=== PATIENT | male | born 1950 | race Caucasian/White ===

== ENCOUNTER 2019-08-26 15:20 | Inpatient (IN) | payer MEDICARE ==
[~2019-08-26] VITALS: Ht 170.2 cm; Wt 55.0 kg
--- NOTE | 2019-08-26 16:35 | NUR ---
RECEIVED PT TO ROOM 2131 VIA STRETCHER, X2 ASSSIST TO TRANSFER PT. PT A/O X4, RESP EVEN AND NONLABORED ON 2L NC. RT FA IV SL. ORIENTED PT TO ROOM AND CALL. WILL ASSESS PT AND START PLAN OF CARE.
[2019-08-26] MEDS ORDERED: HYDROCODON-ACE1 EAC7 PO (16:37)
[2019-08-26] MEDS ORDERED: PROTONIX40 MG PO (16:38)
[2019-08-26 16:48] VITALS: BP 134/71; BMI 18.8
[2019-08-26] MEDS ORDERED: CARAFATE1 G PO (17:09)
[2019-08-26] MEDS ORDERED: PROCARDIA10 MG PO (17:10)
[2019-08-26] MEDS ORDERED: ACETAMINOPHEN500 M1 PO (17:11)
[2019-08-26] MEDS ORDERED: DULCOLAX10 MG/SUPP RC (17:12)
[2019-08-26] MEDS ORDERED: BENADRYL25 MG PO (17:13)
[2019-08-26] MEDS ORDERED: FAMOTIDINE10 MG PO (17:14)
[2019-08-26] MEDS ORDERED: FERROUS SULFAT325 MG PO (17:17)
[2019-08-26] MEDS ORDERED: HYDRALAZINE20 MG/ML IV (17:20)
[2019-08-26] MEDS ORDERED: METOPROLOL TART25 MG PO (17:21)
[2019-08-26] MEDS ORDERED: MULTI-DAY VITAM1 TAB PO (17:22)
[2019-08-26] MEDS ORDERED: FERRO-SEQUEL (17:35)
--- NOTE | 2019-08-26 18:04 | NUR ---
CALLED DERREK MENJIVAR APRN, LEFT VOICEMAIL, LETTING HER KNOW THAT PT IS HERE AND NEED ORDERS.
[2019-08-26 20:00] VITALS: BP 130/84
[2019-08-26 20:41] LABS: BASOPHILS 0.5 % (0-2); EOSINOPHILS 2.2 % (0-7); HEMATOCRIT 27.7 % (42.0-54.0); HEMOGLOBIN 8.7 g/dL (13.5-17.5); IMMATURE GRANULOCYTES 0.2 % (0-5); LYMPHOCYTES 28.1 % (15-50); MCH 26.8 pg (26.0-34.0); MCHC 31.4 g/dL (31.0-37.0); MCV 85.2 fL (80.0-100.0); MEAN PLATELET VOLUME 9.4 fL (7.4-10.4); MONOCYTES 10.3 % (2-11); NEUTROPHILS 58.7 % (40-80); PLATELET COUNT 158 10x3/uL (130-400); RBC 3.25 10x6/uL (4.20-6.10); WBC 5.5 10x3/uL (4.8-10.8)
[2019-08-26 20:54] LABS: ANION GAP 13.2 mmol/L (8-16); CALCIUM 7.6 mg/dL (8.5-10.1); CARBON DIOXIDE 20.1 mmol/L (21.0-32.0); CREATININE - SERUM 5.2 mg/dL (0.6-1.3); POTASSIUM - SERUM 4.3 mmol/L (3.5-5.1)
[2019-08-26 21:00] LABS: ALBUMIN 2.2 g/dL (3.4-5.0); BILIRUBIN - TOTAL 0.19 mg/dL (0.2-1.3)
[2019-08-27] VITALS: BP 122/56
--- NOTE | 2019-08-27 03:24 | NUR ---
PT ASKING FOR HIS HYDROCODONE, PAGE OUT TO DERREK MENJIVAR APN REVENUE TAX SPECIALIST.
[2019-08-27 04:00] VITALS: BP 132/84
[2019-08-27 07:01] LABS: APTT 33.1 SECONDS (22.8-39.4); INR 1.12 (0.85-1.17); PROTIME 13.9 SECONDS (11.6-15.0)
[2019-08-27 07:03] LABS: ANION GAP 12.5 mmol/L (8-16); CALCIUM 7.8 mg/dL (8.5-10.1); CARBON DIOXIDE 19.6 mmol/L (21.0-32.0); CREATININE - SERUM 5.2 mg/dL (0.6-1.3); POTASSIUM - SERUM 4.1 mmol/L (3.5-5.1)
[2019-08-27 07:27] LABS: CREATININE - URINE 130.6 mg/dL (30-125)
[2019-08-27 07:35] LABS: PROTEIN - URINE 387.3 mg/dL (0.0-11.9)
[2019-08-27 08:15] LABS: APPEARANCE SL CLDY (CLEAR); BACTERIA FEW /hpf (NEGATIVE); BILIRUBIN NEGATIVE (NEGATIVE); COLOR YELLOW (YELLOW); EPITHELIAL CELLS RARE /hpf (0-5); GLUCOSE NEGATIVE (NEGATIVE); KETONE NEGATIVE (NEGATIVE); MUCUS <1+ /lpf (NONE SEEN); NITRITE NEGATIVE (NEGATIVE); PROTEIN 3+ mg/dL (NEGATIVE); SPECIFIC GRAVITY 1.015 (1.005-1.020); UROBILINOGEN NORMAL (NORMAL); WHITE CELLS - URINE OCC /hpf (NEGATIVE)
[2019-08-27 08:25] LABS: YEAST <1+ /hpf (NONE SEEN)
[2019-08-27 08:50] VITALS: BP 129/62
--- NOTE | 2019-08-27 09:05 | NUR ---
SPOKE WITH FLAVIO FROM [facility]. STATED NO BIOPSY TODAY. GAVE ME THE OKAY TO ORDER BREAKFAST FOR PT.
--- NOTE | 2019-08-27 12:29 | NUR ---
PT BP 79/44. PT SAT UP IN BED. BP INCREASED TO 83/47. PT IS HAVING NO SYMPTOMS OF HYPOTENSION. RENAL PROGRAM DEVELOPMENT SPECIALIST NOTIFIED. NO FURTHER ORDERS RECIEVED AT THIS TIME. WILL CONTINUE TO MONITOR.
[2019-08-27 14:17] VITALS: BP 83/47
--- NOTE | 2019-08-27 19:29 | NUR ---
I REVIEWED THE ASSESSMENT BY RUN LEAD AND I CONCUR.
[2019-08-27 20:00] VITALS: BP 142/62
[2019-08-27 23:00] VITALS: BP 146/72
[2019-08-28 04:00] VITALS: BP 155/81
[2019-08-28 06:14] LABS: BASOPHILS 0.8 % (0-2); EOSINOPHILS 2.5 % (0-7); HEMATOCRIT 29.2 % (42.0-54.0); HEMOGLOBIN 9.1 g/dL (13.5-17.5); IMMATURE GRANULOCYTES 0.2 % (0-5); LYMPHOCYTES 26.9 % (15-50); MCH 26.8 pg (26.0-34.0); MCHC 31.2 g/dL (31.0-37.0); MCV 86.1 fL (80.0-100.0); MEAN PLATELET VOLUME 9.7 fL (7.4-10.4); MONOCYTES 7.2 % (2-11); NEUTROPHILS 62.4 % (40-80); PLATELET COUNT 179 10x3/uL (130-400); RBC 3.39 10x6/uL (4.20-6.10); RDW 19.6 % (11.5-14.5); WBC 5.2 10x3/uL (4.8-10.8)
[2019-08-28 06:35] LABS: ANION GAP 17.5 mmol/L (8-16); CALCIUM 8.3 mg/dL (8.5-10.1); CARBON DIOXIDE 16.7 mmol/L (21.0-32.0); CREATININE - SERUM 5.1 mg/dL (0.6-1.3); POTASSIUM - SERUM 4.2 mmol/L (3.5-5.1)
[2019-08-28 06:43] LABS: APTT 28.7 SECONDS (22.8-39.4); INR 1.04 (0.85-1.17); PROTIME 13.1 SECONDS (11.6-15.0)
--- NOTE | 2019-08-28 09:00 | NUR ---
UNABLE TO DO BYOPSY AT THIS TIME. YANIRA CONSULTED FOR JULIA. CONSENTS SIGNED. REMAINS NPO. WILL CONT. PLAN OF CARE.
[2019-08-28 09:48] VITALS: BP 169/83
--- NOTE | 2019-08-28 13:14 | NUR ---
LEAVING FOR CT BY BED. WILL CONT. PLAN OF CARE.
--- NOTE | 2019-08-28 14:14 | NUR ---
BACK FROM BIOPSY. VS WNL. RIGHT LOWER BACK DRSG CLEAN AND DRY. WILL CONT. TO MONITOR.
[2019-08-28 17:16] VITALS: BP 114/63
[2019-08-28 17:27] VITALS: BP 128/48
--- NOTE | 2019-08-28 19:10 | NUR ---
BEDSIDE REPORT RECEIVED FROM DAY SHIFT, PT CARE ASSUMED. WROTE NAME ON BOARD, PT SITTING UP IN BED, C/O SOB, MELIZA, RT, MAKING ROUNDS ON FLOOR, NOTIFIED OF RESPIRATORY TX REQUEST. REQUESTING DRINK AND SANDWICH, PROVIDED. DENIES ANY OTHER NEEDS AT THIS TIME. BED IN LOWEST POSITION, SR X2, CALL LIGHT AND URINAL WITHIN REACH. WILL CONTINUE TO MONITOR.
[2019-08-28 20:00] VITALS: BP 145/70
[2019-08-29] VITALS: BP 123/76
[2019-08-29 04:00] VITALS: BP 144/66
--- NOTE | 2019-08-29 07:35 | NUR ---
ASSESSMENT DONE. DNIES NEEDS
[2019-08-29 08:38] LABS: BASOPHILS 0.3 % (0-2); HEMATOCRIT 28.2 % (42.0-54.0); HEMOGLOBIN 8.8 g/dL (13.5-17.5); IMMATURE GRANULOCYTES 0.2 % (0-5); MCH 27.1 pg (26.0-34.0); MCHC 31.2 g/dL (31.0-37.0); MCV 86.8 fL (80.0-100.0); MEAN PLATELET VOLUME 9.2 fL (7.4-10.4); MONOCYTES 8.6 % (2-11); NEUTROPHILS 65.9 % (40-80); PLATELET COUNT 161 10x3/uL (130-400); RBC 3.25 10x6/uL (4.20-6.10); RDW 19.9 % (11.5-14.5); WBC 5.9 10x3/uL (4.8-10.8)
[2019-08-29 08:46] LABS: ANION GAP 15.9 mmol/L (8-16); CALCIUM 8.2 mg/dL (8.5-10.1); CARBON DIOXIDE 19.2 mmol/L (21.0-32.0); CREATININE - SERUM 5.5 mg/dL (0.6-1.3); POTASSIUM - SERUM 4.1 mmol/L (3.5-5.1)
[2019-08-29 08:50] VITALS: BP 160/79
[2019-08-29 11:59] VITALS: BP 146/81
--- NOTE | 2019-08-29 14:15 | NUR ---
I have reviewed this patient and I concur with the Shift Assessment completed by the Licensed Practical Nurse today this shift.
[2019-08-29 16:41] VITALS: BP 119/65
[2019-08-29 20:00] VITALS: BP 130/63
--- NOTE | 2019-08-29 22:28 | NUR ---
INITIAL ROUNDS COMPLETED AT 1915 HRS. PT RESTING WITH EYES CLOSED. RESP EVEN AND REGULAR. ASSESSMENT COMPLETED AT 2014 HRS. ALERT AND ORIENTED TO PERSON, PLACE AND TIME. GONZALEZ. IV TO RFA SL. LUNGS DIMINISHED IN BASES BILAT. GONZALEZ. PM MEDS GIVEN. PT CURRENTLY WAITNG FOR RT TX. SR UP X2, CALL LIGHT WITHIN REACH.
[2019-08-30] VITALS: BP 141/80
--- NOTE | 2019-08-30 00:50 | NUR ---
PT RESTING WITH EYES CLOSED. RESP EVEN AND REGULAR. SR UP X2, CALL LIGHT WITHIN REACH.
--- NOTE | 2019-08-30 02:31 | NUR ---
SPRITE GIVEN PER REQUEST. NO DISTRESS NOTED. SR UP X2, CALL LIGHT WITHIN REACH.
[2019-08-30 04:00] VITALS: BP 156/73
--- NOTE | 2019-08-30 04:23 | NUR ---
PT RESTING WITH EYES CLOSED. RESP EVEN AND REGULAR. SR UP X2, CALL LIGHT WITHIN REACH.
[2019-08-30 06:00] LABS: BASOPHILS 0.4 % (0-2); EOSINOPHILS 2.9 % (0-7); HEMATOCRIT 28.2 % (42.0-54.0); HEMOGLOBIN 8.8 g/dL (13.5-17.5); IMMATURE GRANULOCYTES 0.2 % (0-5); LYMPHOCYTES 30.1 % (15-50); MCH 26.6 pg (26.0-34.0); MCHC 31.2 g/dL (31.0-37.0); MCV 85.2 fL (80.0-100.0); MEAN PLATELET VOLUME 10.1 fL (7.4-10.4); MONOCYTES 11.2 % (2-11); NEUTROPHILS 55.2 % (40-80); PLATELET COUNT 171 10x3/uL (130-400); RBC 3.31 10x6/uL (4.20-6.10); RDW 20.1 % (11.5-14.5); WBC 5.1 10x3/uL (4.8-10.8)
--- NOTE | 2019-08-30 06:02 | NUR ---
VSS THROUGHTOUT NIGHT. PT STATED NORCO PO CONTROLLED CHRONIC PAIN. NEEDS MET; WILL CONTINUE TO MONITOR.
[2019-08-30 06:21] LABS: ANION GAP 15.8 mmol/L (8-16); CALCIUM 8.1 mg/dL (8.5-10.1); CARBON DIOXIDE 18.7 mmol/L (21.0-32.0); CREATININE - SERUM 5.5 mg/dL (0.6-1.3); MAGNESIUM - SERUM 1.6 mg/dL (1.8-2.4); PHOSPHOROUS 4.5 mg/dL (2.5-4.9); POTASSIUM - SERUM 3.5 mmol/L (3.5-5.1)
--- NOTE | 2019-08-30 07:00 | NUR ---
RECEIVED REPORT. ASSUMED CARE OF PATIENT. PATIENT RESTING WITH EYES CLOSED. RESP EVEN AND UNLABORED, AUDIBLE WHEEZES NOTED. CALL LIGHT WITHIN REACH. NO DISTRESS.
[2019-08-30 08:48] VITALS: BP 158/78
--- NOTE | 2019-08-30 09:08 | NUR ---
MEDICATED FOR PAIN AT THIS TIME. NO DISTRESS. PATIENT REQUESTING EXTRA SWEET TEA AND WANTING TO GO BACK HOME TO [place] WITH ALL OF HIS FAMILY THE HOLIDAY IS NEAR.
--- NOTE | 2019-08-30 10:09 | NUR ---
RESTING PEACEFULLY IN BED AT THIS TIME. SWEET PLACED AT BEDSIDE REQUESTED PRIOR TO FALLING ASLEEP.
--- NOTE | 2019-08-30 15:07 | NUR ---
LEMON TE-MOAK SODA PROVIDED. NO DISTRESS. CALL LIGHT WITHIN REACH.
[2019-08-30 17:00] VITALS: BP 122/63
--- NOTE | 2019-08-30 19:23 | NUR ---
RECEIVED UP IN BED WITH EYES OPEN AND TV ON. ALERT AND ORIENTED X4. UP WITH ASSIST. USES URINAL IN BED. O2@ 2 LITERS PER N/C. NOT ON AND PLACED BACK ON . EDUCATED ON NEED. IV TO RIGHT FA SL. DENIES ANY NEEDS AT THIS TIME.
[2019-08-30 20:40] VITALS: BP 160/84
[2019-08-31 00:30] VITALS: BP 163/69
[2019-08-31 04:36] VITALS: BP 152/72
[2019-08-31 06:39] LABS: CARBON DIOXIDE 21.5 mmol/L (21.0-32.0); CREATININE - SERUM 5.2 mg/dL (0.6-1.3); POTASSIUM - SERUM 3.5 mmol/L (3.5-5.1)
[2019-08-31 06:48] LABS: BASOPHILS 0.4 % (0-2); EOSINOPHILS 2.9 % (0-7); HEMATOCRIT 26.7 % (42.0-54.0); HEMOGLOBIN 8.5 g/dL (13.5-17.5); IMMATURE GRANULOCYTES 0.2 % (0-5); LYMPHOCYTES 29.1 % (15-50); MCH 26.9 pg (26.0-34.0); MCHC 31.8 g/dL (31.0-37.0); MCV 84.5 fL (80.0-100.0); MONOCYTES 10.7 % (2-11); NEUTROPHILS 56.7 % (40-80); PLATELET COUNT 164 10x3/uL (130-400); RBC 3.16 10x6/uL (4.20-6.10); RDW 20.4 % (11.5-14.5); WBC 4.8 10x3/uL (4.8-10.8)
--- NOTE | 2019-08-31 07:25 | NUR ---
REPORT RECEIVED FROM INSIDE ACCOUNT REPRESENTATIVE AND PATIENT CARE ASSUMED. PATIENT LAYING IN BED ON BACK WITH EYES CLOSED AND BREATING EVENLY. VSW. WILL CONTINUE TO MONITOR. SR UPX 2 BED IN LOW POSITION AND CALL LIGHT IN REACH.
[2019-08-31 09:59] VITALS: BP 168/86
--- NOTE | 2019-08-31 12:21 | NUR ---
PATIENT IS STABLE AND VSS. PATIENT DENIES ANY NEEDS OR PAIN. WILL CONTINUE TO MONITOR. SR UP X 2 BED IN LOW POSITION AND CALL LIGHT IN REACH.
[2019-08-31 15:13] VITALS: Ht 170.2 cm; Wt 55.0 kg
--- NOTE | 2019-08-31 15:32 | NUR ---
CALLED TO PTS ROOM. PATIENT COMPLAINS OF GENRALIZED PAIN AT A 6. MEDICATED PER MAR WITH NORCO 5. PATIENT REPOSITIONED FOR COPMFORT. WILL CONTINUE TO MONITOR. SR UP X 2 BED IN LOW POSITION AND CALL LIGHT IN REACH.
--- NOTE | 2019-08-31 17:08 | NUR ---
PATIENT SITTING UP EATING SUPPER. PATIENT IS STABLE AND VSS. PATIENT DENIES ANY NEEDS OR PAIN. WILL CONTINUE TO MONITOR. SR UP X 2 BED IN LOW POSITION AND CALL LIGHT IN REACH.
[2019-08-31 18:26] VITALS: BP 113/74
--- NOTE | 2019-08-31 19:35 | NUR ---
EVENING ROUNDS COMPLETE, PT RESTING IN BED, EASY TO AROUSE. AAOX4. PT DENIES ANY PAIN OR NEEDS AT THIS TIME. CL IN REACH, BED IN LOWEST POSITION.
[2019-08-31 20:37] VITALS: BP 121/60
[2019-09-01 00:30] VITALS: BP 149/77
--- NOTE | 2019-09-01 02:10 | NUR ---
PT C/O NOT BEING ABLE TO BREATH, REQUESTED TO CALL [facility] FOR PRN UPDRAFT TREATMENT. [facility] CALLED AND WILL FOLLOW UP. CL IN REACH, BED IN LOWEST POSITION.
[2019-09-01 04:32] VITALS: BP 158/83
[2019-09-01 06:22] LABS: BASOPHILS 0.2 % (0-2); EOSINOPHILS 2.5 % (0-7); HEMATOCRIT 26.2 % (42.0-54.0); HEMOGLOBIN 8.5 g/dL (13.5-17.5); IMMATURE GRANULOCYTES 0.2 % (0-5); LYMPHOCYTES 25.7 % (15-50); MCH 27.2 pg (26.0-34.0); MCHC 32.4 g/dL (31.0-37.0); MCV 83.7 fL (80.0-100.0); MEAN PLATELET VOLUME 9.2 fL (7.4-10.4); MONOCYTES 7.5 % (2-11); NEUTROPHILS 63.9 % (40-80); PLATELET COUNT 139 10x3/uL (130-400); RBC 3.13 10x6/uL (4.20-6.10); RDW 20.4 % (11.5-14.5); WBC 4.8 10x3/uL (4.8-10.8)
[2019-09-01 06:33] LABS: CALCIUM 8.2 mg/dL (8.5-10.1); CARBON DIOXIDE 24.4 mmol/L (21.0-32.0); CREATININE - SERUM 5.5 mg/dL (0.6-1.3); POTASSIUM - SERUM 3.4 mmol/L (3.5-5.1)
--- NOTE | 2019-09-01 08:11 | NUR ---
PT SITTIN G UP IN BED USING URINAL. RR EVEN AND UNLABORED. AXO. DENIES NEEDS OR PAIN AT THIS TIME. PT STATES HE IS "MORE THAN READY" TO GO HOME. BED IN LOWEST POSITION. CALL LIGHT WITHIN REACH. WILL CONTINUE TO MONITOR.
[2019-09-01 08:16] VITALS: BP 174/81
[2019-09-01 12:11] VITALS: BP 146/77
--- NOTE | 2019-09-01 14:22 | MORECARE ---
CASE MANAGEMENT DISCHARGE SUMMARY PATIENT: KATE TURCIOS UNIT: [id number] ADM DATE: 08/26/19 AGE: 69 : 50 SEX: M ROOM/BED: D.2132 AUTHOR: SHELLEY WILLIAMSON PHYSICIAN: REFERRING PHYSICIAN: TANGELA CERON MD DATE OF SERVICE: 09/01/19 Discharge Plan Patient Name: KATE TURCIOS Facility: [facility]:[place] : 1950 Planned Disposition: Home Anticipated Discharge Date: 09/01/19 Discharge Date: Expected LOS: 6 Initial Reviewer: [id number] Initial Review Date: 09/01/2019 Generated: 09/01/19 3:22 pm DCPIA - Discharge Planning Initial Assessment Updated by ALEISHA: Jason Fox on 09/01/19 2:20 pm * Is the patient Alert and Oriented? Yes * How many steps to enter\exit or inside your home? NONE * PCP DR. JUSTIN [place] * Pharmacy [facility] IN [place] * Preadmission Environment Home with Family * ADLs Independent * Equipment Power Chair or Electric Scooter Walker * Other Equipment [facility] IN [place] * List name and contact numbers for known caregivers / representatives who currently or will assist patient after discharge: MIGUEL TURCIOS, SON, * Verbal permission to speak to the caregivers and representatives has been obtained from the patient. Yes * Community resources currently utilized None * Please name any agencies selected above. NONE * Additional services required to return to the preadmission environment? Yes * Can the patient safely return to the preadmission environment? Yes * Has this patient been hospitalized within the prior 30 days at any hospital? No External Providers [facility] Next Contact Date: 09/01/2019 Service Request Date: Service Type: Resolution: Reviewer: Comments: Coverage Notice Reviewer: [id number] Fox Notice Issued Date-Time: 09/01/2019 11:00 Notice Type: IM Discharge Notice Notice Delivered To: Patient Relationship to Patient: Home Health Care Coordinator Name: Delivery Method: HAND - Hand Delivered Tammie Days: Prior Verbal Notification: Recipient Understood Notice: Yes Recipient Signature: Yes Med Rec Note Co-signed by Attending: Coverage Notice Comment: Reviewer: ALEISHA Fox Notice Issued Date-Time: 09/01/2019 13:45 Notice Type: Patient Choice Letter Notice Delivered To: Patient Relationship to Patient: Home Health Care Coordinator Name: Delivery Method: HAND - Hand Delivered Tammie Days: Prior Verbal Notification: Recipient Understood Notice: Yes Recipient Signature: Yes Med Rec Note Co-signed by Attending: Coverage Notice Comment: [facility] Patient Name: KATE TURCIOS Page [id number] at 1422 All edits/amendments must be made on the electronic document DICTATION DATE: 09/01/19 142 SALES ENGINEERING MANAGER: KINSEY 09/01/19 1422 RPT#: [id number] ND DATE: STATUS: ADM IN [facility] [address] [place] [address] END OF REPORT
--- NOTE | 2019-09-01 14:51 | MORECARE ---
CASE MANAGEMENT DISCHARGE SUMMARY PATIENT: KATE TURCIOS UNIT: [id number] ADM DATE: 08/26/19 AGE: 69 : 50 SEX: M ROOM/BED: D.2132 AUTHOR: SHELLEY WILLIAMSON PHYSICIAN: REFERRING PHYSICIAN: TANGELA LANIER MD DATE OF SERVICE: 09/01/19 Discharge Plan Patient Name: KATE TURCIOS Facility: [facility]:[place] : 1950 Planned Disposition: Home Anticipated Discharge Date: 09/01/19 Discharge Date: Expected LOS: 6 Initial Reviewer: [id number] Initial Review Date: 09/01/2019 Generated: 09/01/19 3:51 pm Comments DCP- Discharge Planning Updated by [id number]: Jason Fox on 09/01/19 1:[address] Patient Name: KATE TURCIOS Admission Status: Elective Accout number: [id number] Admission Date: 08-26-2019 : 1950 Admission Diagnosis: Attending: Tangela Lanier Current LOS: 6 Anticipated DC Date: 09-01-2019 Planned Disposition: Home Primary Insurance: MEDICARE A & B Discharge Planning Comments: CM RECEIVED DISCHARGE ORDER, SPOKE TO DR. FULTON WHO INFORMED CM THAT PT WILL NEED THE BUS OR SOMETHING TO GET HOME. CM MET WITH PT IN ROOM TO DISCUSS DISCHARGE PLANNING AND NEEDS. PT REPORTS LIVING AT HOME DEPENDENTLY WITH HIS ADULT SON; PT REPORTS HAVING ASSISTANCE WITH BATHING AND TRANSFERS TO WHEELCHAIR NEEDED FROM HIS SON AND FROM [employer] [facility], 5 HOURS EACH WEEK DAY AND 2 HOURS EACH WEEKEND. PT HAS ELECTRIC WHEELCHAIR AND WALKER FROM [facility]IENT. CM DISCUSSED AVAILABILITY OF HOME HEALTH, REHAB SERVICES AND MEDICAL EQUIPMENT. PT DENIES DISCHARGE NEEDS EXCEPT FOR AN AMBULANCE HOME; CM EXPLAINED TO PT THAT HE IS ABLE TO TRANSFER TO A CHAIR AND SIT FOR TRANSPORT AND DOES NOT QUALIFY FOR AMBULANCE TRANSPORTATION. PT STATES THAT HE WAS PROMISED BY SOMEONE AT THE HOSPITAL THAT HE WOULD BE SENT HOME BY AMBULANCE. CM EXPLAINED THAT THE PERSON THAT TOLD HIM THAT WAS NOT CORRECT. CM EXPLORED HOW PT NORMALLY TRANSPORTS, PT REPORTS HIS PERSONAL CARE SERVICE OR MEDICAID TRANSPORTATION. CM EXPLAINED THAT MEDICAID TRANSPORT WAS CLOSED FOR SEPTEMBER 01 AND . PT ASKED CM TO CALL HIS SON, MIGUEL, TO ASK FOR HIM TO ARRANGE A RIDE. PT STATES HIS SON LOST HIS LICENSE AND CANNOT DRIVE. CM CALLED MIGUEL AT [phone]. MIGUEL STATES HE CANNOT DRIVE TO CHANCERY CLERK PT, THAT HIS AUNT AND UNCLE, CLAIRE AND AMNA ARE GOING OUT OF TOWN AND CANNOT CHANCERY CLERK PT TODAY AND THAT "MARGY" IS ALSO GOING OUT OF TOWN. PT AND SON DENY HAVING MONEY FOR TAXI SERVICES TO GET HOME TO [place]. MIGUEL WILL "ASK AROUND" TO SEE IF HE CAN FIND SOMEONE TO CHANCERY CLERK PT FROM THE HOSPITAL TODAY AND WILL NOTIFY THE PATIENT. IMPORTANT MESSAGE FROM MEDICARE PROVIDED AND EXPLAINED. CM NOTICED PT ON 3LNC OXYGEN IN ROOM, INFORMED BEDSIDE NURSE THAT PT WILL NEED TO BE WEANED OFF THE OXYGEN AND IF UNABLE TO WEAN, WILL NEED HOME OXYGEN TESTING. PT STATES HIS SON IS STILL LOOKING FOR SOMEONE TO PICK HIM UP. CM LATER RECEIVED HOME OXYGEN TESTING, 99% ON ROOM AIR AT REST, 87% ON ROOM AIR DURING EXERTION, 97% RECOVERY ON 2LNC. CM MET WITH PT IN ROOM WHO ASKED FOR [facility], CHOICE SIGNED. CM CALLED [facility], NUMBER DISCONNECTED IN [place]. CM CALLED [facility] IN [place], SPOKE TO CHRISTIANO WHO INFORMED CM THAT [facility] DOES NOT HAVE OFFICE IN [place] ANY LONGER AND SUGGESTED CM CALL AFFILIATED SERVICE, [facility]. CM SPOKE TO PT IN ROOM, HE IS IN AGREEMENT WITH PLANALEKSEY UPDATED. CM CALLED [facility] IN [place], ANSWERING SERVICE INSTRUCTED CM TO CALL [facility]. CM CALLED [facility], , SPOKE TO ANSWERING SERVICE WHO TOOK OXYGEN ORDER. CM FAXED OXYGEN ORDER WITH SUPPORTING DOUCMENTES TO [facility] AT [phone]. [facility] TO ARRANGE PORTABLE OXYGEN TO HOPITAL ROOM AND HOME OXYGEN AND NEBULIZER FOR HOME DELIVERY AFTER PT ARRIVES HOME TODAY. COMMERCIAL MARKETING SPECIALIST NURSE NOTIFIED. [facility] TO DELIVER OXYGEN TO PT'S ROOM FOR DISCHARGE HOME TODAY. PT'S SON IS LOOKING FOR SOMEONE TO CHANCERY CLERK PT AND TRANSPORT BACK HOME TO [place]. PT DOES NOT QUALIFY FOR AMBULANCE, MEDICAID TRANSPORT IS OUT OF SERVICE UNTIL 09-03-19 AND PT REPORTS HAVING NO MONEY FOR TAXI SERVICES HOME TO [place]. [employer]: Jason Fox DCPIA - Discharge Planning Initial Assessment Updated by [id number]: Jason Fox on 09/01/19 2:20 pm * Is the patient Alert and Oriented? Yes * How many steps to enter\\exit or inside your home? NONE * PCP DR. UJSTIN [place] * Pharmacy [facility] IN [place] * Preadmission Environment Home with Family * ADLs Independent * Equipment Power Chair or Electric Scooter Walker * Other Equipment [facility] IN [place] * List name and contact numbers for known caregivers / representatives who currently or will assist patient after discharge: MIGUEL TURCIOS, SON, * Verbal permission to speak to the caregivers and representatives has been obtained from the patient. Yes * Community resources currently utilized None * Please name any agencies selected above. NONE * Additional services required to return to the preadmission environment? Yes * Can the patient safely return to the preadmission environment? Yes * Has this patient been hospitalized within the prior 30 days at any hospital? No Coverage Notice Reviewer: [id number] Braulio Fox Notice Issued Date-Time: 09/01/2019 11:00 Notice Type: IM Discharge Notice Notice Delivered To: Patient Relationship to Patient: Floral Clerk Name: Delivery Method: HAND - Hand Delivered Tammie Days: Prior Verbal Notification: Recipient Understood Notice: Yes Recipient Signature: Yes Med Rec Note Co-signed by Attending: Coverage Notice Comment: Reviewer: [id number] Braulio Fox Notice Issued Date-Time: 09/01/2019 13:45 Notice Type: Patient Choice Letter Notice Delivered To: Patient Relationship to Patient: Floral Clerk Name: Delivery Method: HAND - Hand Delivered Tammie Days: Prior Verbal Notification: Recipient Understood Notice: Yes Recipient Signature: Yes Med Rec Note Co-signed by Attending: Coverage Notice Comment: [facility] Last DP export: 09/01/19 1:22 Patient Name: KATE TURCIOS Page [phone] at 1451 All edits/amendments must be made on the electronic document DICTATION DATE: 09/01/191449 WAITER/WAITRESS TAKE OUT: KINSEY 09/01/191449 RPT#: [id number] DC DATE: STATUS: ADM IN [facility] [address] [place] [address] END OF REPORT
--- NOTE | 2019-09-01 15:07 | MORECARE ---
CASE MANAGEMENT DISCHARGE SUMMARY PATIENT: KATE TURCIOS UNIT: [id number] ADM DATE: 08/26/19 AGE: 69 : 50 SEX: M ROOM/BED: D.2132 AUTHOR: SHELLEY WILLIAMSON PHYSICIAN: REFERRING PHYSICIAN: TANGELA LANIER MD DATE OF SERVICE: 09/01/19 Discharge Plan Patient Name: KATE TURCIOS Facility: [facility]:[place] : 1950 Planned Disposition: Home Anticipated Discharge Date: 09/01/19 Discharge Date: Expected LOS: 6 Initial Reviewer: [id number] Initial Review Date: 09/01/2019 Generated: 09/01/19 4:06 pm Comments DCP- Discharge Planning Updated by [id number]: Jason Canales on 09/01/19 2:[address] Patient Name: KATE TURCIOS Admission Status: Elective Accout number: [id number] Admission Date: 08-26-2019 : 1950 Admission Diagnosis: Attending: Tangela Lanier Current LOS: 6 Anticipated DC Date: 09-01-2019 Planned Disposition: Home Primary Insurance: MEDICARE A & B Discharge Planning Comments: CM RECEIVED DISCHARGE ORDER, SPOKE TO DR. FULTON WHO INFORMED CM THAT PT WILL NEED THE BUS OR SOMETHING TO GET HOME. CM MET WITH PT IN ROOM TO DISCUSS DISCHARGE PLANNING AND NEEDS. PT REPORTS LIVING AT HOME DEPENDENTLY WITH HIS ADULT SON; PT REPORTS HAVING ASSISTANCE WITH BATHING AND TRANSFERS TO WHEELCHAIR NEEDED FROM HIS SON AND FROM [facility], 5 HOURS EACH WEEK DAY AND 2 HOURS EACH WEEKEND. PT HAS ELECTRIC WHEELCHAIR AND WALKER FROM [facility] PATIENT. CM DISCUSSED AVAILABILITY OF HOME HEALTH, REHAB SERVICES AND MEDICAL EQUIPMENT. PT DENIES DISCHARGE NEEDS EXCEPT FOR AN AMBULANCE HOME; CM EXPLAINED TO PT THAT HE IS ABLE TO TRANSFER TO A CHAIR AND SIT FOR TRANSPORT AND DOES NOT QUALIFY FOR AMBULANCE TRANSPORTATION. PT STATES THAT HE WAS PROMISED BY SOMEONE AT THE HOSPITAL THAT HE WOULD BE SENT HOME BY AMBULANCE. CM EXPLAINED THAT THE PERSON THAT TOLD HIM THAT WAS NOT CORRECT. CM EXPLORED HOW PT NORMALLY TRANSPORTS, PT REPORTS HIS PERSONAL CARE SERVICE OR MEDICAID TRANSPORTATION. CM EXPLAINED THAT MEDICAID TRANSPORT WAS CLOSED FOR SEPTEMBER 01 AND . PT ASKED CM TO CALL HIS SON, MIGUEL, TO ASK FOR HIM TO ARRANGE A RIDE. PT STATES HIS SON LOST HIS LICENSE AND CANNOT DRIVE. CM CALLED MIGUEL AT [phone]. MIGUEL STATES HE CANNOT DRIVE TO MUSEUM REGISTRAR PT, THAT HIS AUNT AND UNCLE, CLAIRE AND AMNA ARE GOING OUT OF TOWN AND CANNOT MUSEUM REGISTRAR PT TODAY AND THAT "MARGY" IS ALSO GOING OUT OF TOWN. PT AND SON DENY HAVING MONEY FOR TAXI SERVICES TO GET HOME TO [place]. MIGUEL WILL "ASK AROUND" TO SEE IF HE CAN FIND SOMEONE TO MUSEUM REGISTRAR PT FROM THE HOSPITAL TODAY AND WILL NOTIFY THE PATIENT. IMPORTANT MESSAGE FROM MEDICARE PROVIDED AND EXPLAINED. CM NOTICED PT ON 3LNC OXYGEN IN ROOM, INFORMED BEDSIDE NURSE THAT PT WILL NEED TO BE WEANED OFF THE OXYGEN AND IF UNABLE TO WEAN, WILL NEED HOME OXYGEN TESTING. PT STATES HIS SON IS STILL LOOKING FOR SOMEONE TO PICK HIM UP. CM LATER RECEIVED HOME OXYGEN TESTING, 99% ON ROOM AIR AT REST, 87% ON ROOM AIR DURING EXERTION, 97% RECOVERY ON 2LNC. CM MET WITH PT IN ROOM WHO ASKED FOR [facility], ALEKSEY SIGNED. CM CALLED [facility], NUMBER DISCONNECTED IN [place]. CM CALLED [facility] IN [place], SPOKE TO CHRISTIANO WHO INFORMED CM THAT [facility] DOES NOT HAVE OFFICE IN [place] ANY LONGER AND SUGGESTED CM CALL [facility]ICE, [facility]. CM SPOKE TO PT IN ROOM, HE IS IN AGREEMENT WITH PLANALEKSEY UPDATED. CM CALLED [facility] IN [place], ANSWERING SERVICE INSTRUCTED CM TO CALL [facility]. CM CALLED [facility], , SPOKE TO ANSWERING SERVICE WHO TOOK OXYGEN ORDER. CM FAXED OXYGEN ORDER WITH SUPPORTING DOUCMENTES TO [facility] AT [phone]. [facility] TO ARRANGE PORTABLE OXYGEN TO HOPITAL ROOM AND HOME OXYGEN AND NEBULIZER FOR HOME DELIVERY AFTER PT ARRIVES HOME TODAY. TRADE MARKER NURSE NOTIFIED. [facility] TO DELIVER OXYGEN TO PT'S ROOM FOR DISCHARGE HOME TODAY. PT'S SON IS LOOKING FOR SOMEONE TO MUSEUM REGISTRAR PT AND TRANSPORT BACK HOME TO [place]. PT DOES NOT QUALIFY FOR AMBULANCE, MEDICAID TRANSPORT IS OUT OF SERVICE UNTIL 09-03-19 AND PT REPORTS HAVING NO MONEY FOR TAXI SERVICES HOME TO [place]. Workers' Compensation Claims Examiner: Jason Canales Appended by Jason Canales on 09/01/2019 15:01 BREADING MACHINE TENDER: CM SPOKE TO [facility] ANSWERING SERVICE, , ANSWERING SERVICE ADVISED THAT [facility] PORT[facility] OXGYEN FOR DISCHARGE HOME WITHIN THE HOUR. TRADE MARKER NURSE NOTIFIED. JASON CANALES, CASE MANAGEMENT DCPIA - Discharge Planning Initial Assessment Updated by [id number]: Jason Canales on 09/01/19 2:20 pm * Is the patient Alert and Oriented? Yes * How many steps to enter\\exit or inside your home? NONE * PCP DR. JUSTIN [place] * Pharmacy [facility] IN [place] * Preadmission Environment Home with Family * ADLs Independent * Equipment Power Chair or Electric Scooter Walker * Other Equipment [facility] IN [place] * List name and contact numbers for known caregivers / representatives who currently or will assist patient after discharge: MIGUEL TURCIOS, SON, * Verbal permission to speak to the caregivers and representatives has been obtained from the patient. Yes * Community resources currently utilized None * Please name any agencies selected above. NONE * Additional services required to return to the preadmission environment? Yes * Can the patient safely return to the preadmission environment? Yes * Has this patient been hospitalized within the prior 30 days at any hospital? No Coverage Notice Reviewer: [id number] Braulio Canales Notice Issued Date-Time: 09/01/2019 11:00 Notice Type: IM Discharge Notice Notice Delivered To: Patient Relationship to Patient: Special Education Preschool Teacher Name: Delivery Method: HAND - Hand Delivered Tammie Days: Prior Verbal Notification: Recipient Understood Notice: Yes Recipient Signature: Yes Med Rec Note Co-signed by Attending: Coverage Notice Comment: Reviewer: [id number] Braulio Canales Notice Issued Date-Time: 09/01/2019 13:45 Notice Type: Patient Choice Letter Notice Delivered To: Patient Relationship to Patient: Special Education Preschool Teacher Name: Delivery Method: HAND - Hand Delivered Tammie Days: Prior Verbal Notification: Recipient Understood Notice: Yes Recipient Signature: Yes Med Rec Note Co-signed by Attending: Coverage Notice Comment: [facility] Last DP export: 09/01/19 1:51 Patient Name: KATE TURCIOS Page [phone] at 1507 All edits/amendments must be made on the electronic document DICTATION DATE: 09/01/19 1506 LIFE EDUCATOR: KINSEY 09/01/19 1506 RPT#: [id number] DC DATE: STATUS: ADM IN [facility] [address] [place] [address] END OF REPORT
--- NOTE | 2019-09-01 15:56 | NUR ---
I have reviewed this patient and I concur with the Shift Assessment completed by the Licensed Practical Nurse today this shift.
--- NOTE | 2019-09-01 16:57 | NUR ---
CARE RESUMED FROM PREVIOUS NURSE. O2 AT 2 L/M PER NC. R KING GALLARDO. HAS A DISCHARGE, AWAITING A RIDE. DENIES ANY NEEDS
--- NOTE | 2019-09-01 19:10 | NUR ---
BEDSIDE REPORT RECEIVED FROM DAY SHIFT, PT CARE ASSUMED. WROTE NAME ON BOARD. PT LYING IN BED, WATCHING TV, AAOX4. DENIES ANY NEEDS AT THIS TIME. BED IN LOWEST POSITION, SR X2, CALL LIGHT WITHIN REACH. WILL CONTINUE TO MONITOR.
[2019-09-01 20:00] VITALS: BP 154/73
[2019-09-02] VITALS: BP 152/78
[2019-09-02 04:00] VITALS: BP 163/76
[2019-09-02 07:20] LABS: BASOPHILS 0.2 % (0-2); EOSINOPHILS 2.9 % (0-7); HEMATOCRIT 27.3 % (42.0-54.0); HEMOGLOBIN 8.9 g/dL (13.5-17.5); IMMATURE GRANULOCYTES 0.2 % (0-5); LYMPHOCYTES 22.6 % (15-50); MCH 27.1 pg (26.0-34.0); MCHC 32.6 g/dL (31.0-37.0); MCV 83.2 fL (80.0-100.0); MEAN PLATELET VOLUME 9.5 fL (7.4-10.4); MONOCYTES 8.7 % (2-11); NEUTROPHILS 65.4 % (40-80); PLATELET COUNT 135 10x3/uL (130-400); RBC 3.28 10x6/uL (4.20-6.10); RDW 20.3 % (11.5-14.5); WBC 4.5 10x3/uL (4.8-10.8)
[2019-09-02 07:27] LABS: ANION GAP 13.7 mmol/L (8-16); CALCIUM 8.1 mg/dL (8.5-10.1); CARBON DIOXIDE 24.4 mmol/L (21.0-32.0); CREATININE - SERUM 5.3 mg/dL (0.6-1.3); POTASSIUM - SERUM 3.1 mmol/L (3.5-5.1)
--- NOTE | 2019-09-02 07:46 | NUR ---
REPORT RECEIVED. WILL CONTINUE WITH POC. PT CURRENTLY LYING SUPINE. CALL LIGHT W/I REACH. PT IS AAO AND UP WITH ASSIST. RR EVEN AND UNLABORED ON 2L 02. R.FOR PIV IS SALINE LOCKED. NO S/S OF DISTRESS NOTED. WILL CTM.
[2019-09-02 08:42] VITALS: BP 172/88
[2019-09-02 14:05] VITALS: BP 99/45
--- NOTE | 2019-09-02 16:07 | NUR ---
I have reviewed this patient and I concur with the Shift Assessment completed by the Licensed Practical Nurse today this shift.
[2019-09-02 16:20] VITALS: BP 108/50
--- NOTE | 2019-09-02 19:10 | NUR ---
BEDSIDE REPORT RECEIVED FROM DAY SHIFT, PT CARE ASSUMED. WROTE NAME ON BOARD. PT LYING IN BED WITH EYES CLOSED, RR EVEN AND NONLABORED, NO S/S OF DISTRESS, AROUSES EASILY TO VOICE. DENIES ANY NEEDS AT THIS TIME. BED IN LOWEST POSITION, SR X2, CALL LIGHT AND URINAL WITHIN REACH. WILL CONTINUE TO MONITOR.
[2019-09-02 20:00] VITALS: BP 100/49
--- NOTE | 2019-09-02 21:25 | NUR ---
PT LYING IN BED WITH EYES CLOSED, RR EVEN AND NONLABORED, NO S/S OF DISTRESS, AROUSES EASILY TO VOICE. NIGHT TIME MEDS ADMINISTERED, PER ORDER. PT DENIES SOB, PAIN, OR ANY OTHER NEEDS AT THIS TIME. BED IN LOWEST POSITION, SR X2, CALL LIGHT AND URINAL WITHIN REACH. WILL CONTINUE TO MONITOR.
[2019-09-03] VITALS: BP 137/64
[2019-09-03 04:00] VITALS: BP 155/78
[2019-09-03 06:11] LABS: BASOPHILS 0.2 % (0-2); EOSINOPHILS 2.6 % (0-7); HEMATOCRIT 26.2 % (42.0-54.0); HEMOGLOBIN 8.4 g/dL (13.5-17.5); IMMATURE GRANULOCYTES 0.2 % (0-5); LYMPHOCYTES 23.1 % (15-50); MCH 26.9 pg (26.0-34.0); MCHC 32.1 g/dL (31.0-37.0); MEAN PLATELET VOLUME 9.6 fL (7.4-10.4); MONOCYTES 11.3 % (2-11); NEUTROPHILS 62.6 % (40-80); PLATELET COUNT 128 10x3/uL (130-400); RBC 3.12 10x6/uL (4.20-6.10); RDW 20.5 % (11.5-14.5); WBC 4.7 10x3/uL (4.8-10.8)
[2019-09-03 07:19] LABS: ANION GAP 12.6 mmol/L (8-16); CALCIUM 8.2 mg/dL (8.5-10.1); CREATININE - SERUM 5.4 mg/dL (0.6-1.3)
[2019-09-03 07:20] LABS: POTASSIUM - SERUM 3.6 mmol/L (3.5-5.1)
--- NOTE | 2019-09-03 07:26 | NUR ---
REPORT RECEIVED. WILL CONTINUE WITH POC. PT CURRENTLY LYING SUPINE. CALL LIGHT W/I REACH. RR EVEN AND UNLABORED ON 2L 02. R.FOR PIV IS SALINE LOCKED. PT IS AAO AND QUESTIONING ABOUT A RIDE HOME. NOTIFIED HIM THAT I WOULD CHECK WITH CASE MANAGEMENT AND GET BACK WITH HIM. NO S/S OF DISTRESS NOTED. WILL CTM.
--- NOTE | 2019-09-03 08:40 | MORECARE ---
CASE MANAGEMENT DISCHARGE SUMMARY PATIENT: KATE TURCIOS UNIT: [id number] ADM DATE: 08/26/19 AGE: 69 : 50 SEX: M ROOM/BED: D.2132 AUTHOR: SHELLEY WILLIAMSON PHYSICIAN: REFERRING PHYSICIAN: TANGELA LANIER MD DATE OF SERVICE: 09/03/19 Discharge Plan Patient Name: KATE TURCIOS Facility: [facility]:[place] : 1950 Planned Disposition: Home Anticipated Discharge Date: 09/01/19 Discharge Date: Expected LOS: 6 Initial Reviewer: [id number] Initial Review Date: 09/01/2019 Generated: 09/03/19 9:40 am Comments DCP- Discharge Planning Updated by [email or web address]: Jason Canales on 09/01/19 2:[address] Patient Name: KATE TURCIOS Admission Status: Elective Accout number: [id number] Admission Date: 08-26-2019 : 1950 Admission Diagnosis: Attending: Tangela Lanier Current LOS: 6 Anticipated DC Date: 09-01-2019 Planned Disposition: Home Primary Insurance: MEDICARE A & B Discharge Planning Comments: CM RECEIVED DISCHARGE ORDER, SPOKE TO DR. FULTON WHO INFORMED CM THAT PT WILL NEED THE BUS OR SOMETHING TO GET HOME. CM MET WITH PT IN ROOM TO DISCUSS DISCHARGE PLANNING AND NEEDS. PT REPORTS LIVING AT HOME DEPENDENTLY WITH HIS ADULT SON; PT REPORTS HAVING ASSISTANCE WITH BATHING AND TRANSFERS TO WHEELCHAIR NEEDED FROM HIS SON AND FROM [facility] OF [facility], 5 HOURS EACH WEEK DAY AND 2 HOURS EACH WEEKEND. PT HAS ELECTRIC WHEELCHAIR AND WALKER FROM [facility]. CM DISCUSSED AVAILABILITY OF HOME HEALTH, REHAB SERVICES AND MEDICAL EQUIPMENT. PT DENIES DISCHARGE NEEDS EXCEPT FOR AN AMBULANCE HOME; CM EXPLAINED TO PT THAT HE IS ABLE TO TRANSFER TO A CHAIR AND SIT FOR TRANSPORT AND DOES NOT QUALIFY FOR AMBULANCE TRANSPORTATION. PT STATES THAT HE WAS PROMISED BY SOMEONE AT THE HOSPITAL THAT HE WOULD BE SENT HOME BY AMBULANCE. CM EXPLAINED THAT THE PERSON THAT TOLD HIM THAT WAS NOT CORRECT. CM EXPLORED HOW PT NORMALLY TRANSPORTS, PT REPORTS HIS PERSONAL CARE SERVICE OR MEDICAID TRANSPORTATION. CM EXPLAINED THAT MEDICAID TRANSPORT WAS CLOSED FOR SEPTEMBER 01 AND . PT ASKED CM TO CALL HIS SON, MIGUEL, TO ASK FOR HIM TO ARRANGE A RIDE. PT STATES HIS SON LOST HIS LICENSE AND CANNOT DRIVE. CM CALLED MIGUEL AT [phone]. MIGUEL STATES HE CANNOT DRIVE TO TOBACCO STRIPPER PT, THAT HIS AUNT AND UNCLE, CLAIRE AND AMNA ARE GOING OUT OF TOWN AND CANNOT TOBACCO STRIPPER PT TODAY AND THAT "MARGY" IS ALSO GOING OUT OF TOWN. PT AND SON DENY HAVING MONEY FOR TAXI SERVICES TO GET HOME TO [place]. MIGUEL WILL "ASK AROUND" TO SEE IF HE CAN FIND SOMEONE TO TOBACCO STRIPPER PT FROM THE HOSPITAL TODAY AND WILL NOTIFY THE PATIENT. IMPORTANT MESSAGE FROM MEDICARE PROVIDED AND EXPLAINED. CM NOTICED PT ON 3LNC OXYGEN IN ROOM, INFORMED BEDSIDE NURSE THAT PT WILL NEED TO BE WEANED OFF THE OXYGEN AND IF UNABLE TO WEAN, WILL NEED HOME OXYGEN TESTING. PT STATES HIS SON IS STILL LOOKING FOR SOMEONE TO PICK HIM UP. CM LATER RECEIVED HOME OXYGEN TESTING, 99% ON ROOM AIR AT REST, 87% ON ROOM AIR DURING EXERTION, 97% RECOVERY ON 2LNC. CM MET WITH PT IN ROOM WHO ASKED FOR [facility], ALEKSEY SIGNED. CM CALLED [facility], NUMBER DISCONNECTED IN [place]. CM CALLED [facility] IN [place], SPOKE TO CHRISTIANO WHO INFORMED CM THAT [facility] PATIENT DOES NOT HAVE OFFICE IN [place] ANY LONGER AND SUGGESTED CM CALL AFFIL[facility]ATED SERVICE, [facility]. CM SPOKE TO PT IN ROOM, HE IS IN AGREEMENT WITH PLANALEKSEY UPDATED. CM CALLED [facility] IN [place], ANSWERING SERVICE INSTRUCTED CM TO CALL [facility]. CM CALLED [facility], , SPOKE TO ANSWERING SERVICE WHO TOOK OXYGEN ORDER. CM FAXED OXYGEN ORDER WITH SUPPORTING DOUCMENTES TO [facility] AT [phone]. [facility] TO ARRANGE PORTABLE OXYGEN TO HOPITAL ROOM AND HOME OXYGEN AND NEBULIZER FOR HOME DELIVERY AFTER PT ARRIVES HOME TODAY. NEUROSURGEON NURSE NOTIFIED. [facility] TO DELIVER OXYGEN TO PT'S ROOM FOR DISCHARGE HOME TODAY. PT'S SON IS LOOKING FOR SOMEONE TO TOBACCO STRIPPER PT AND TRANSPORT BACK HOME TO [place]. PT DOES NOT QUALIFY FOR AMBULANCE, MEDICAID TRANSPORT IS OUT OF SERVICE UNTIL 09-03-19 AND PT REPORTS HAVING NO MONEY FOR TAXI SERVICES HOME TO [place]. Rn Diabetes Educator: Jason Canales Appended by Jsaon Canales on 09/01/2019 15:01 LICENSE REGISTRATION EXAMINER: CM SPOKE TO [facility] ANSWERING SERVICE, , ANSWERING SERVICE ADVISED THAT [facility] WILL DELIVER PORTABLE OXGYEN FOR DISCHARGE HOME WITHIN THE HOUR. NEUROSURGEON NURSE NOTIFIED. JASON CANALES, CASE MANAGEMENT DCPIA - Discharge Planning Initial Assessment Updated by [email or web address]: Jason Canales on 09/03/19 8:36 am * Is the patient Alert and Oriented? Yes * How many steps to enter\\exit or inside your home? NONE * PCP DR. JUSTIN [place] * Pharmacy [facility] IN [place] * Preadmission Environment Home with Family * ADLs Independent * Equipment Power Chair or Electric Scooter Walker * Other Equipment [facility] IN [place] * List name and contact numbers for known caregivers / representatives who currently or will assist patient after discharge: MIGUEL TURCIOS, SON, AT [phone]. * Verbal permission to speak to the caregivers and representatives has been obtained from the patient. Yes * Community resources currently utilized None * Please name any agencies selected above. NONE * Additional services required to return to the preadmission environment? Yes * Can the patient safely return to the preadmission environment? Yes * Has this patient been hospitalized within the prior 30 days at any hospital? No Coverage Notice Reviewer: [id number] Braulio Canales Notice Issued Date-Time: 09/01/2019 11:00 Notice Type: IM Discharge Notice Notice Delivered To: Patient Relationship to Patient: Senior Oracle Applications Developer Name: Delivery Method: HAND - Hand Delivered Tammie Days: Prior Verbal Notification: Recipient Understood Notice: Yes Recipient Signature: Yes Med Rec Note Co-signed by Attending: Coverage Notice Comment: Reviewer: [id number] Braulio Canales Notice Issued Date-Time: 09/01/2019 13:45 Notice Type: Patient Choice Letter Notice Delivered To: Patient Relationship to Patient: Senior Oracle Applications Developer Name: Delivery Method: HAND - Hand Delivered Tammie Days: Prior Verbal Notification: Recipient Understood Notice: Yes Recipient Signature: Yes Med Rec Note Co-signed by Attending: Coverage Notice Comment: [facility] OR [facility] Last DP export: 09/01/19 2:07 Patient Name: KATE TURCIOS Page [phone] at 0840 All edits/amendments must be made on the electronic document DICTATION DATE: 12/26/19 0840 ENVIRONMENTAL AIR SPECIALIST: KINSEY 09/03/19839 RPT#: [id number] DC DATE: STATUS: ADM IN [facility] [address] [place] [address] END OF REPORT
--- NOTE | 2019-09-03 09:10 | MORECARE ---
CASE MANAGEMENT DISCHARGE SUMMARY PATIENT: KATE TURCIOS UNIT: [id number] ADM DATE: 08/26/19 AGE: 69 : 50 SEX: M ROOM/BED: D.2132 AUTHOR: SHELLEY WILLIAMSON PHYSICIAN: REFERRING PHYSICIAN: TANGELA LANIER MD DATE OF SERVICE: 09/03/19 Discharge Plan Patient Name: KATE TURCIOS Facility: [facility]:[place] : 1950 Planned Disposition: Home Anticipated Discharge Date: 09/03/19 Discharge Date: Expected LOS: 8 Initial Reviewer: [id number] Initial Review Date: 09/01/2019 Generated: 09/03/19 10:09 am Comments DCP- Discharge Planning Updated by [id number]: Saul Canales on 09/03/19 8:[address] Patient Name: KATE TURCIOS Encounter No: [id number] : 1950 Primary Insurance: MEDICARE A & B Anticipated DC Date: 09-03-2019 Planned Disposition: Home DCP follow-up note: CM MET WITH PT IN ROOM TO DISCUSS DISCHARGE NEEDS AND PLANNING. CM DISCUSSED AVAILABILITY OF HOME HEALTH, REHAB SERVICES AND MEDICAL EQUIPMENT. PT DENIES DISCHARGE NEEDS. PT STILL HAS NOTRANSPORT HOME AND ASKED CM TO CALL MEDICAID TRANSPORTATION. CM CALLED [facility], , SPOKE TO NADINE WHO ARRANGED WALLPAPER PRINTER HELPER FOR TODAY, THEY WILL CALL WHEN AT FRONT DOOR TO WALLPAPER PRINTER HELPER PT. CONFIRMATION NUMBER [phone]. PT NOTIFIED AND IN AGREEMENT WITH PLAN. DISTILLERY LABORER NURSE NOTIFIED. KIKE Tirado DCP- Discharge Planning Updated by [email or web address]: Saul Canales on 09/01/19 2:[address] Patient Name: KATE TURCIOS Admission Status: Elective Accout number: [id number] Admission Date: 08-26-2019 : 1950 Admission Diagnosis: Attending: Tangela Lanier Current LOS: 6 Anticipated DC Date: 09-01-2019 Planned Disposition: Home Primary Insurance: MEDICARE A & B Discharge Planning Comments: CM RECEIVED DISCHARGE ORDER, SPOKE TO DR. FULTON WHO INFORMED CM THAT PT WILL NEED THE BUS OR SOMETHING TO GET HOME. CM MET WITH PT IN ROOM TO DISCUSS DISCHARGE PLANNING AND NEEDS. PT REPORTS LIVING AT HOME DEPENDENTLY WITH HIS ADULT SON; PT REPORTS HAVING ASSISTANCE WITH BATHING AND TRANSFERS TO WHEELCHAIR NEEDED FROM HIS SON AND FROM [facility] OF [facility], 5 HOURS EACH WEEK DAY AND 2 HOURS EACH WEEKEND. PT HAS ELECTRIC WHEELCHAIR AND WALKER FROM [facility]. CM DISCUSSED AVAILABILITY OF HOME HEALTH, REHAB SERVICES AND MEDICAL EQUIPMENT. PT DENIES DISCHARGE NEEDS EXCEPT FOR AN AMBULANCE HOME; CM EXPLAINED TO PT THAT HE IS ABLE TO TRANSFER TO A CHAIR AND SIT FOR TRANSPORT AND DOES NOT QUALIFY FOR AMBULANCE TRANSPORTATION. PT STATES THAT HE WAS PROMISED BY SOMEONE AT THE HOSPITAL THAT HE WOULD BE SENT HOME BY AMBULANCE. CM EXPLAINED THAT THE PERSON THAT TOLD HIM THAT WAS NOT CORRECT. CM EXPLORED HOW PT NORMALLY TRANSPORTS, PT REPORTS HIS PERSONAL CARE SERVICE OR MEDICAID TRANSPORTATION. CM EXPLAINED THAT MEDICAID TRANSPORT WAS CLOSED FOR SEPTEMBER 01 AND . PT ASKED CM TO CALL HIS SON, MIGUEL, TO ASK FOR HIM TO ARRANGE A RIDE. PT STATES HIS SON LOST HIS LICENSE AND CANNOT DRIVE. CM CALLED MIGUEL AT [phone]. MIGUEL STATES HE CANNOT DRIVE TO WALLPAPER PRINTER HELPER PT, THAT HIS AUNT AND UNCLE, CLAIRE AND AMNA ARE GOING OUT OF TOWN AND CANNOT WALLPAPER PRINTER HELPER PT TODAY AND THAT "MARGY" IS ALSO GOING OUT OF TOWN. PT AND SON DENY HAVING MONEY FOR TAXI SERVICES TO GET HOME TO [place]. MIGUEL WILL "ASK AROUND" TO SEE IF HE CAN FIND SOMEONE TO WALLPAPER PRINTER HELPER PT FROM THE HOSPITAL TODAY AND WILL NOTIFY THE PATIENT. IMPORTANT MESSAGE FROM MEDICARE PROVIDED AND EXPLAINED. CM NOTICED PT ON 3LNC OXYGEN IN ROOM, INFORMED BEDSIDE NURSE THAT PT WILL NEED TO BE WEANED OFF THE OXYGEN AND IF UNABLE TO WEAN, WILL NEED HOME OXYGEN TESTING. PT STATES HIS SON IS STILL LOOKING FOR SOMEONE TO PICK HIM UP. CM LATER RECEIVED HOME OXYGEN TESTING, 99% ON ROOM AIR AT REST, 87% ON ROOM AIR DURING EXERTION, 97% RECOVERY ON 2LNC. CM MET WITH PT IN ROOM WHO ASKED FOR [facility] PATIENTALEKSEY SIGNED. CM CALLED [facility], NUMBER DISCONNECTED IN [place]. CM CALLED [facility] IN [place], SPOKE TO CHRISTIANO WHO INFORMED CM THAT [facility] DOES NOT HAVE OFFICE IN [place] ANY LONGER AND SUGGESTED CM CALL [facility]. CM SPOKE TO PT IN ROOM, HE IS IN AGREEMENT WITH PLAN, CHOICE UPDATED. CM CALLED [facility] IN [place], ANSWERING SERVICE INSTRUCTED CM TO CALL [facility]UM[facility]. CM CALLED [facility] [place], , SPOKE TO ANSWERING SERVICE WHO TOOK OXYGEN ORDER. CM FAXED OXYGEN ORDER WITH SUPPORTING DOUCMENTES TO [facility] [place] AT [phone]. [facility] [place] TO ARRANGE PORTABLE OXYGEN TO HOPITAL ROOM AND HOME OXYGEN AND NEBULIZER FOR HOME DELIVERY AFTER PT ARRIVES HOME TODAY. DISTILLERY LABORER NURSE NOTIFIED. [facility] [place] TO DELIVER OXYGEN TO PT'S ROOM FOR DISCHARGE HOME TODAY. PT'S SON IS LOOKING FOR SOMEONE TO WALLPAPER PRINTER HELPER PT AND TRANSPORT BACK HOME TO [place]. PT DOES NOT QUALIFY FOR AMBULANCE, MEDICAID TRANSPORT IS OUT OF SERVICE UNTIL 09-03-19 AND PT REPORTS HAVING NO MONEY FOR TAXI SERVICES HOME TO [place]. Corn Miller: Saul Canales Appended by Saul Canales on 09/01/2019 15:01 SKEIN STRAIGHTENER: CM SPOKE TO [facility] [place] ANSWERING SERVICE, , ANSWERING SERVICE ADVISED THAT ARABELLA OF [facility] [place] WILL DELIVER PORTABLE OXGYEN FOR DISCHARGE HOME WITHIN THE HOUR. DISTILLERY LABORER NURSE NOTIFIED. SAUL CANALES, CASE MANAGEMENT DCPIA - Discharge Planning Initial Assessment Updated by [id number]: Saul Canales on 09/03/19 8:36 am * Is the patient Alert and Oriented? Yes * How many steps to enter\\exit or inside your home? NONE * PCP DR. JUSTIN, [place] * Pharmacy [facility] [place] * Preadmission Environment Home with Family * ADLs Independent * Equipment Power Chair or Electric Scooter Walker * Other Equipment [facility] IN [place] * List name and contact numbers for known caregivers / representatives who currently or will assist patient after discharge: MIGEUL TURCIOS, SON, AT [phone]. * Verbal permission to speak to the caregivers and representatives has been obtained from the patient. Yes * Community resources currently utilized None * Please name any agencies selected above. NONE * Additional services required to return to the preadmission environment? Yes * Can the patient safely return to the preadmission environment? Yes * Has this patient been hospitalized within the prior 30 days at any hospital? No Coverage Notice Reviewer: [id number] - Saul Canales Notice Issued Date-Time: 09/01/2019 11:00 Notice Type: IM Discharge Notice Notice Delivered To: Patient Relationship to Patient: Small Battery Plate Assembler Name: Delivery Method: HAND - Hand Delivered Tammie Days: Prior Verbal Notification: Recipient Understood Notice: Yes Recipient Signature: Yes Med Rec Note Co-signed by Attending: Coverage Notice Comment: Reviewer: [id number] - Saul Canales Notice Issued Date-Time: 09/01/2019 13:45 Notice Type: Patient Choice Letter Notice Delivered To: Patient Relationship to Patient: Small Battery Plate Assembler Name: Delivery Method: HAND - Hand Delivered Tammie Days: Prior Verbal Notification: Recipient Understood Notice: Yes Recipient Signature: Yes Med Rec Note Co-signed by Attending: Coverage Notice Comment: [facility] Last DP export: 09/03/19 7:40 Patient Name: KATE TURCIOS Page [phone] at 0910 All edits/amendments must be made on the electronic document DICTATION DATE: 09/03/19908 SHANK PINNER: KINSEY 09/03/19908 RPT#: [id number] DC DATE: STATUS: ADM IN [facility] [address] [place] [address] END OF REPORT
[2019-09-03 10:29] VITALS: BP 147/75
--- NOTE | 2019-09-03 15:24 | NUR ---
PT DISCHARGED HOME VIA WHEELCHAIR WITH KEL. PIV REMOVED WITH CATHETER TIP FULLY INTACT. PT SIGNED PROPER DISCHARGE INSTRUCTIONS AND REMOVED ALL VALUABLES FROM THE ROOM.
== END 2019-09-03 15:25 | disposition home or self-care (01) | DRG 682 ==
LOC: D.M2 15:20 → D.SDCHOLD 08-31 12:31 → D.M2 08-31 13:13
PROVIDERS: Internal Medicine Nephrology; Specialist; ADMIT Internal Medicine Nephrology; ATTEND Internal Medicine Nephrology
PROC: 0TB13ZX Excision of Left Kidney, Percutaneous Approach, Diagnostic (ICD-10-PCS; principal; 2019-08-28 13:00)
DX: N17.0 Acute kidney failure with tubular necrosis (principal); I50.33 Acute on chronic diastolic (congestive) heart failure; N17.9 Acute kidney failure, unspecified; I12.9 Hypertensive chronic kidney disease with stage 1 through stage 4 chronic kidney disease, or unspecified chronic kidney disease; N18.9 Chronic kidney disease, unspecified; J44.9 Chronic obstructive pulmonary disease, unspecified; Z72.0 Tobacco use